=== PATIENT | female | born 2000 | race Caucasian/White ===

== ENCOUNTER 2024-05-10 05:31 | Inpatient (IN) ==
--- NOTE | 2024-05-02 09:12 | Anesthesiology Consultation ---
Date of Service May 02, 2024 Assessment & Plan (1) Encounter for pre-operative examination: - Per claim review medical director on 05/02/24: No known infectious disease contacts, current infectious disease symptoms in past 10 days or COVID positive test result in the past 30 days. Chart Review Chart Review: layout man initiated History Surgery Operation Date: 05/10/24 07:30 Proposed Procedures p Section (Delivery of Baby Through Abdominal Incision) - Aj Goss MD Height/Weight Height: 5 ft 8 in Weight: 95.254 kg Allergies Allergy/AdvReac Type Severity Reaction Status Date / Time guaifenesin [From Mucinex] Allergy Mild Rash Verified 05/02/24 07:49 Medications Home Medications Medication Instructions Recorded Confirmed Last Taken vitamin no.180-ferrous 1 tab PO DAILY #30 tabs 11/22/23 05/02/24 Unknown fumarate 27 mg-folic acid 1 mg tablet ( Plus Vitamin-Mineral) blood sugar diagnostic (OneTouch #150 ea 04/18/24 04/29/24 Unknown Verio test strips) blood-glucose meter (OneTouch #1 ea 04/18/24 04/29/24 Unknown Verio Reflect Meter) lancets 33 gauge (OneTouch Delica #150 ea 04/18/24 04/29/24 Unknown Plus Lancet) magnesium 250 mg tablet 250 mg PO DAILY 05/02/24 05/02/24 Unknown Past Medical History Medical History (Updated 05/02/24 @ 09:11 by Kim Bliss PA-C) Anxiety and depression Gestational diabetes no meds, reports yesterday bs range 81-119 History of asthma as a child No pertinent family history PCO (polycystic ovaries) Tachycardia reports no palpitations Past Family History Family History Denies family history of Ovarian cancer Breast cancer Colorectal cancer Uterine cancer Past Surgical History Surgical History History of esophagogastroduodenoscopy (EGD) Hx of myringotomy S/P tonsillectomy and adenoidectomy Social History Smoking Status: Current every day smoker Smoking cigarettes per day: 5 cigs per day (Advised) Do You Dip or Chew Tobacco: No Hx Alcohol Use: No Hx Substance Use: Yes substance use type: does not use and marijuana Last Used Substance Other:: last use approx. 5-6 months ago Lab Results Anesthesia Preop Results Results Anesthesia Widget: WBC 13.87 K/ul (4.8-10.8) H 04/25/24 Hgb 12.3 g/dl (12.0-16.0) 04/25/24 Hct 34.6 % (37.0-47.0) L 04/25/24 Plt 268 K/uL (130-400) 04/25/24 Na 138 mmol/L (136-145) 04/25/24 K 3.7 mmol/L (3.5-5.1) 04/25/24 Cl 107 mmol/L (98-107) 04/25/24 CO2 21 mmol/L (21-32) 04/25/24 BUN 12 mg/dl (6-23) 04/25/24 Creat 0.71 mg/dl (0.6-1.2) 04/25/24 Glucose Level 89 mg/dl (70-99(Fasting)) 04/25/24 POC Glucose 84 mg/dl (70-99) 03/28/24 Urine Color Dark Yellow 04/11/24 Urine Appearance Turbid (Clear) A 04/11/24 Urine pH 6.5 (4.5-7.5) 04/11/24 Urine Specific [place] 1.024 (1.000-1.030) 04/11/24 Urine Protein Trace (Negative) H 04/11/24 Urine Glucose (UA) Negative (Negative) 04/11/24 Urine Ketones Trace (Negative) H 04/11/24 Urine Blood Negative (Negative) 04/11/24 Urine Nitrite Negative (Negative) 04/11/24 Urine Bilirubin Negative (Negative) 04/11/24 Urine Urobilinogen Negative (Negative) 04/11/24 Urine Leukocyte Esterase 2+ (Negative) H 04/11/24 Urine WBC (Auto) >50 /hpf (0-5) H 04/11/24 Urine RBC (Auto) 0-2 /hpf (0-2) 04/11/24 Urine Hyaline Casts (Auto) 6-10 /lpf (0-2) H 04/11/24 Urine Epithelial Cells (Auto) 6-10 /hpf (0-2) H 04/11/24 Urine Bacteria (Auto) 4+ (None Seen) H 04/11/24 Urine Amorphous Sediment Present (None Prsent) A 04/11/24 COVID-19 PCR NEGATIVE (Negative) 03/22/24 Testing Chest X-Ray Date: 03/22/24 *1view* No pneumonia seen
[2024-05-10] MEDS: ACETAMINOPHEN 500 MG TAB PO SCH (06:26)
[2024-05-10 06:28] LABS: Hematocrit (blood only) 34.9 % (37.0-47.0); Hemoglobin 12.3 g/dl (12.0-16.0); Mean Corpuscular Hemoglobin 33.1 pg (25.0-34.0); Mean Corpuscular Hgb Conc 35.2 g/dL (32.0-36.0); Mean Corpuscular Volume 93.8 fL (80.0-100.0); Mean Platelet Volume 9.9 fL (9.4-12.4); Platelet Count 188 K/uL (130-400); RDW Coefficient of Variation 13.5 % (11.5-14.5); RDW Standard Deviation 46.2 fL (36.4-46.3); Red Blood Count 3.72 M/uL (4.20-5.40); White Blood Count 15.09 K/ul (4.8-10.8)
[2024-05-10] MEDS: LACTATED RINGER'S 1,000 ML IV SCH ×3 (06:29→09:01)
[2024-05-10] MEDS ORDERED: NALOXONE HCL 1 MG in SODIUM CHLORIDE 0.9% 1,000 ML IV PRN (07:25)
[2024-05-10] MEDS ORDERED: PROMETHAZINE 6.25 MG/50.25 ML BAG IV PRN (07:25)
[2024-05-10] MEDS ORDERED: oxyCODONE HCL IR 5 MG TAB (IMMEDIATE RELEASE) PO PRN (07:25)
[2024-05-10] MEDS ORDERED: NALOXONE HCL 0.08 MG in SYRINGE 1.8 ML IV PRN (07:25)
[2024-05-10] MEDS ORDERED: ePHEDrine sulfate 50 MG/ML AMP IV PRN (07:25)
[2024-05-10] MEDS ORDERED: ONDANSETRON INJ 2 MG/ML 2 ML VIAL IV PRN (07:25)
[2024-05-10] MEDS ORDERED: NALOXONE HCL 0.4 MG/1 ML VIAL/CARP IV PRN (07:25)
[2024-05-10] MEDS ORDERED: MEPERIDINE HCL 25 MG/ML CARP/VIAL IV PRN (07:25)
[2024-05-10] MEDS ORDERED: NALBUPHINE HCL INJ 10 MG/ML AMP IV PRN (07:25)
[2024-05-10] MEDS ORDERED: HYDROmorphone INJ 0.5 MG/0.5 ML SYR IV PRN (07:25)
[2024-05-10] MEDS: ceFAZolin 3000MG 3,000 MG/72.5 ML BAG IV SCH (07:25)
[2024-05-10] MEDS ORDERED: diphenhydrAMINE 50 MG/ML VIAL IV PRN (07:25)
[2024-05-10] MEDS ORDERED: DC INTRASPINAL MORPHINE SCH (07:30)
[2024-05-10] MEDS ORDERED: ONDANSETRON INJ 2 MG/ML 2 ML VIAL ONE (07:30)
[2024-05-10] MEDS ORDERED: MoRPHine SULFATE PF 1 MG/ML 10 ML AMP/VIAL ONE (07:30)
[2024-05-10] MEDS ORDERED: NO NARCOTICS OR SEDATIVES SCH (07:30)
[2024-05-10] MEDS ORDERED: PHENYLEPHRINE HCL 25 MG/250 ML NSS IV ONE (07:33)
--- NOTE | 2024-05-10 07:37 | History & Physical Report ---
Date of Service May 10, 2024 Assessment & Plan (1) IUGR (intrauterine growth restriction) affecting care of mother: Plan: Mandy is a 24-year-old G1, P0 currently at 37 weeks 3 days gestational age presents for primary section secondary to breech presentation and IUGR. Consent forms reviewed and signed. Procedure reviewed in detail and all questions answered. Please see OB chart for additional details. (2) Gestational diabetes mellitus (GDM) affecting , antepartum: (3) Marijuana use during : (4) Encounter for supervision of normal intrauterine in primigravida, antepartum: (5) Breech presentation: Admission and Anticipated Discharge Date Admission Date: May 10, 2024 History of Present Illness Primary Care Provider: NO PCP Mandy is a 24-year-old G1, P0 presents for scheduled primary section secondary to breech presentation and IUGR. GDM *Begin monthly Growth US's @24wks IUGR *Twice weekly NST/DVP@Dx *Weeklyl doppler@Dx *Growth US Q4wk @Dx *Deliver [id number] (unless abnml flow) *Deliver 37wks (less than 3rd%) *Everyday smoking in *Marijuana use in History of Chlamydia in early . Had negative culture 10/23 at [facility] ER. Should be retested approx 3 months after treatment (await former OB records which pt states she signed release for)--Needs testing in January - NEGATIVE 02/2024 C/S SCHEDULED FOR 05/10/[address] LACKEY FOR BREECH & IUGR OB Labs: Blood Type A Positive 11/17/23 Antibody Screen NEGATIVE 11/17/23 Hgb 12.3 g/dl (12.0-16.0) 04/25/24 Hct 34.6 % (37.0-47.0) L 04/25/24 MCV 94.0 fL (80.0-100.0) 04/25/24 Plt Count 268 K/uL (130-400) 04/25/24 Rubella IgG Antibody Immune (Immune) 11/17/23 Treponema pallidum Ab Negative (Negative) 03/12/24 Hep Bs Antigen Negative (Negative) 11/17/23 Hepatitis C Antibody Negative (Negative) 11/17/23 HIV 1&2 Ab/P24 Ag 4thGn Negative (Negative) 11/17/23 Glucose 1 Hr 50 gm 139 mg/dl (70-130) H 03/12/24 OB Optional Labs: Chlamydia trachomatis RNA Not Detected (NotDetected) 03/12/24 Neisseria gonorrhoeae RNA Not Detected (NotDetected) 03/12/24 Thyroid Stimulating Hormone (TSH) 1.364 uIu/ml (0.300-4.500) 03/07/23 Allergies Allergy/AdvReac Type Severity Reaction Status Date / Time guaifenesin [From Mucinex] Allergy Mild Rash Verified 05/09/24 13:48 Home Medications Medication Instructions Recorded Confirmed Type vitamin no.180-ferrous 1 tab PO DAILY #30 tabs 11/22/23 05/10/24 Rx fumarate 27 mg-folic acid 1 mg tablet ( Plus Vitamin-Mineral) blood sugar diagnostic (OneTouch #150 ea 04/18/24 05/10/24 Rx Verio test strips) blood-glucose meter (OneTouch #1 ea 04/18/24 05/10/24 Rx Verio Reflect Meter) lancets 33 gauge (OneTouch Delica #150 ea 04/18/24 05/10/24 Rx Plus Lancet) magnesium 250 mg tablet 250 mg PO DAILY 05/02/24 05/10/24 History Patient History Medical History Anxiety and depression Gestational diabetes no meds, reports yesterday bs range 81-119 History of asthma as a child No pertinent family history PCO (polycystic ovaries) Tachycardia reports no palpitations Surgical History History of esophagogastroduodenoscopy (EGD) Hx of myringotomy S/P tonsillectomy and adenoidectomy Family History Denies family history of Ovarian cancer Breast cancer Colorectal cancer Uterine cancer Social History Smoking Status: Current every day smoker Tobacco Type: Cigarettes Cigarettes Per Day: 5-6 cigs per day; Second Hand Exposure: No; Tobacco Cessation Education Requested by Patient: No Hx Alcohol Use: No Hx Substance Use: Yes Non-Prescribed Medications: Marijuana Non-Prescribed Medications Comment: pt states uses "here and there" for nausea - does not have medical card Last Used Substance Other:: last use approx. 5-6 months ago Preferred Language: Cook Islander Communication Ability: Effective Sandwich Peddler Required: No Beliefs That Will Affect Care: None marital status: Single marital status details: Cliff Goldman (26) [phone] Current Living Situation: Significant Other Current Living Situation Comment: FOB current occupational status: employed current occupation: [employer] in [place] Other Information That Helps Us Care for You: No Feels Safe at Home: Yes Safety Concerns: Feels Safe At This Time Assistive Devices: None Physical Exam Genitourinary: OB Exam Abdomen: + breech OB Exam Monitor Tracing: + external FHT monitor used, + external uterine monitor used, + category I and + normal FHT variability Results & Data Vital Signs (Past 12 Hours) Vital Signs Temp Pulse Resp BP 05/10/24 07:09 77 138/78 05/10/24 05:49 36.5 C 18 05/10/24 05:45 85 152/83 H 05/10/24 05:38 18 05/10/24 05:38 36.5 C 18 Coding Level of Care Code None Diagnoses Poor growth affecting management of mother in third trimester, single or unspecified fetus O36.5930 Fetus number: single or unspecified fetus Trimester: third trimester Gestational diabetes mellitus (GDM) affecting , antepartum O24.419 Marijuana use during O99.320; F12.90 Encounter for supervision of normal intrauterine in primigravida, antepartum Z34.00 Breech presentation, single or unspecified fetus O32.1XX0 Fetus number: single or unspecified fetus (1) IUGR (intrauterine growth restriction) affecting care of mother Fetus number: single or unspecified fetus Trimester: third trimester Qualified Code(s): O36.5930 - Maternal care for other known or suspected poor growth, third trimester, not applicable or unspecified (5) Breech presentation Fetus number: single or unspecified fetus Qualified Code(s): O32.1XX0 - Maternal care for breech presentation, not applicable or unspecified
[2024-05-10] MEDS ORDERED: OXYTOCIN 10 UNITS/ML VIAL ONE (07:39)
[2024-05-10 08:21] LABS: Amphetamines+Metham, Urine Neg (Neg); Barbiturates, Urine Neg (Neg); Benzodiazepine, Urine Neg (Neg); Cocaine, Urine Neg (Neg); Fentanyl, Urine Neg (Neg); MDMA (Ecstacy), Urine Neg (Neg); Marijuana, Urine Neg (Neg); Methadone, Urine Neg (Neg); Opiate, Urine Neg (Neg); Phencyclidine, Urine Neg (Neg)
[2024-05-10] MEDS ORDERED: CALCIUM CARBONATE 500 MG CHEWABLE TAB PO PRN (08:40)
[2024-05-10] MEDS ORDERED: BENZOCAINE 20% SPRY 85 APPLN/85 GM CAN EXT PRN (08:40)
[2024-05-10] MEDS ORDERED: SENNA 8.6 MG TAB PO PRN (08:40)
[2024-05-10] MEDS ORDERED: HYDROCORTISONE ACETATE 25 MG SUPP PR PRN (08:40)
[2024-05-10] MEDS ORDERED: MAGNESIUM HYDROXIDE SUSP 30 ML UDC PO PRN (08:40)
--- NOTE | 2024-05-10 08:43 | Operative Report ---
PG Post Operative Report Pre & Post Diagnosis Operation Date: 05/10/24 07:30 Pre-Op Diagnosis: Intrauterine , primary section for breech, IUGR. Post-Op Diagnosis: same I identified the patient and participated in the time-out.: Yes Procedure Operation Date: 05/10/24 07:30 Actual Procedures p Section for living male child at 0805(Bilateral) - Aj Goss MD Surgeon Aj Goss MD Hog Trader OR staff Estimated Blood Loss 298 (QBL) Findings Consistent with Post-Op Diagnosis Specimens None Description of Procedure Patient was taken the operating room after consent was ensured. Upon presentation she was properly identified. Anesthesia obtained and patient prepped and draped in normal sterile fashion. Preprocedural timeout was performed. A Pfannenstiel incision was made with a knife. This was carried down to underlying fascia with the Bovie and blunt dissection. The fascia was nicked at the midline with a knife and extended laterally with blunt dissection. Abdominal cavity was entered bluntly and placed on stretch to provide adequate room for delivery. A low transverse uterine incision was made with a knife. Breech presentation was confirmed. Caudal end of the was delivered without difficulty. Internal rotation at the hip to deliver the bilateral feet. Delivery continue to level shoulder and arms were internally rotated at the shoulder to deliver both arms atraumatically. And quickly followed and was noted to be vigorous soon after delivery. A 30 second delayed cord clamping was initiated the cord was double clamped and cut and taken to the waiting nursery staff. Attention was turned to delivery of the placenta which delivered intact with three-vessel cord gentle cord traction. Uterus was exteriorized and several passes were made to remove any remaining membranes with a dry lap. Hysterotomy was reapproximated with 0 Vicryl continuous running lock stitch with a second imbricating layer performed. Excellent hemostasis noted. Posterior cul-de-sac cleaned of clots and debris's. Uterus returned maternal abdomen and right left paracolic gutters cleaned of clots and debris's. Hysterotomy remained hemostatic. Subcutaneous, fascia and muscle layers inspected noted be hemostatic. Fascia was reapproximated 0 Vicryl continuous r unning stitch. Subcutaneous layer reapproximated 2 layers using 2-0 plain. Skin reapproximated with 3-0 Vicryl and continuous subcuticular stitch. Dermabond placed on top. Both mother and in stable condition at the completion of the case. Needle sponge and instrument counts correct at the completion of the case. No complications noted and blood loss per QBL in chart. I attest to the content of the Intraoperative Record and any orders documented therein. Any exceptions are noted below. OB Procedure charges OB Charges 18071 Procedure Procedure: Procedures Operation Date: 05/10/24 07:30 Actual Procedure Side Surgeon p Section for living male child at 0805 Bilateral Aj Goss MD Estimated blood loss (mL): 298 (QBL)
[2024-05-10] MEDS: OXYTOCIN 20 UNITS/LR 1,002 ML IV SCH (08:45)
--- NOTE | 2024-05-10 08:59 | Anesthesiology Progress Note ---
Date of Service May 10, 2024 Anesthesia Post Procedure Vital Signs Vital Signs: Temp Pulse Resp BP Pulse Ox 05/10/24 08:56 64 98 05/10/24 08:54 67 91 05/10/24 08:51 61 98 05/10/24 08:47 68 122/59 L 05/10/24 08:46 68 98 05/10/24 07:09 77 138/78 05/10/24 05:49 36.5 C 18 05/10/24 05:45 85 152/83 H 05/10/24 05:38 18 05/10/24 05:38 36.5 C 18 Transfer of Care Handoff Completed per policy Notes Mental Status: alert / awake / arousable Nausea / Vomiting: adequately controlled Pain: adequately controlled Airway Patency, RR, SpO2: stable & adequate BP & HR: stable & adequate Hydration State: stable & adequate Neuraxial Anesthesia: was administered and sensory block is resolving Anesthetic Complications: no major complications apparent and Pt Satisfied with anesthetic care
[2024-05-10] MEDS: CITRIC ACID/SODIUM CITRATE 15 ML UDC PO SCH (09:01)
[2024-05-10] MEDS: DIPHTHER/TETAN/PERTUS Vaccine (Tdap, Adol/Adult) 0.5mL IM ONE (09:04)
[2024-05-10] MEDS: MoRPHine SULFATE PF 1 MG/ML 10 ML AMP/VIAL INT SPINAL ONE (09:04)
[2024-05-10] MEDS: KETOROLAC 30 MG/ML VIAL IV SCH (09:05)
[2024-05-10] MEDS: MoRPHine SULFATE 2 MG/ML CARP IV PRN (10:20)
[2024-05-10] MEDS: SIMETHICONE 80 MG CHEW PO SCH (13:00)
[2024-05-10] MEDS: ACETAMINOPHEN 325 MG TAB PO SCH (15:15)
[2024-05-10] MEDS: DOCUSATE SODIUM 100 MG CAP PO SCH (20:55)
[2024-05-11] MEDS ORDERED: diphenhydrAMINE 50 MG/ML VIAL IV PRN (01:25)
[2024-05-11] MEDS ORDERED: ONDANSETRON INJ 2 MG/ML 2 ML VIAL IV PRN (01:25)
[2024-05-11] MEDS ORDERED: diphenhydrAMINE Capsule 25 MG CAP PO PRN (01:25)
[2024-05-11] MEDS ORDERED: PROMETHAZINE 12.5 MG/50.5 ML BAG IV PRN (01:25)
[2024-05-11] MEDS ORDERED: HYDROmorphone INJ 0.5 MG/0.5 ML SYR IV PRN (01:25)
[2024-05-11] MEDS: oxyCODONE HCL IR 5 MG TAB (IMMEDIATE RELEASE) PO PRN (06:13)
--- NOTE | 2024-05-11 06:59 | Obstetrical Progress Note ---
Date of Service May 11, 2024 Assessment & Plan (1) Breech presentation: Postoperative day #1 she is having minimal bleeding her pain is well-controlled she has no extremity pain she is following the usual recovery course after for breech presentation will continue current care and address any concerns Fetus number: single or unspecified fetus Qualified Code(s): O32.1XX0 - Maternal care for breech presentation, not applicable or unspecified Subjective Ambulation: ambulating normally Voiding: no voiding problems Lochia:: Small Physical Exam Constitutional WD/WN, vitals as above well developed and well nourished Respiratory normal respiratory effort, lungs clear to auscultation normal respiratory effort Cardiovascular RRR, no murmur, no edema Gastrointestinal (Abdomen) normal bowel sounds, soft, nontender, no hepatosplenomegaly Results & Data Vital Signs (Past 12 Hours) Vital Signs Temp Pulse Resp BP Pulse Ox O2 Del Method 05/11/24 03:35 97.9 F 73 16 130/73 96 Room Air 05/11/24 01:26 16 96 05/11/24 01:02 16 96 05/11/24 00:00 18 97 05/10/24 23:15 98.1 F 74 16 119/70 96 Room Air 05/10/24 23:00 18 95 05/10/24 21:59 18 97 05/10/24 21:00 18 96 05/10/24 20:00 Room Air 05/10/24 20:00 98.1 F 74 18 124/72 96 Room Air 05/10/24 20:00 18 96
[2024-05-11 07:57] LABS: Basophils # (auto) 0.02 K/uL (0.00-0.20); Basophils % (auto) 0.2 %; Eosinophils # (auto) 0.16 K/uL (0.00-0.50); Eosinophils % (auto) 1.5 %; Hematocrit (blood only) 31.1 % (37.0-47.0); Hemoglobin 10.7 g/dl (12.0-16.0); Immature Granulocytes # (auto) 0.05 K/uL (0.01-0.20); Immature Granulocytes % (auto) 0.5 %; Lymphocytes # (auto) 2.47 K/uL (1.20-3.40); Lymphocytes % (auto) 23.7 %; Mean Corpuscular Hgb Conc 34.4 g/dL (32.0-36.0); Mean Platelet Volume 10.3 fL (9.4-12.4); Monocytes # (auto) 0.47 K/uL (0.11-0.59); Monocytes % (auto) 4.5 %; Neutrophils # (auto) 7.26 K/uL (1.40-6.50); Neutrophils % (auto) 69.6 %; Platelet Count 163 K/uL (130-400); RDW Coefficient of Variation 13.5 % (11.5-14.5); RDW Standard Deviation 47.9 fL (36.4-46.3); Red Blood Count 3.24 M/uL (4.20-5.40); White Blood Count 10.43 K/ul (4.8-10.8)
[2024-05-11] MEDS: PRENATAL VITAMIN 1 TAB PO SCH (08:31)
[2024-05-11] MEDS: IBUPROFEN 600 MG TAB PO SCH (08:32)
[2024-05-11] MEDS: FERROUS SULFATE 325 MG TAB PO SCH (08:34)
[2024-05-11] MEDS ORDERED: KETOROLAC 30 MG/ML VIAL IV PRN (09:00)
[2024-05-11] MEDS: bisacodyL 5 MG TABEC PO SCH (20:38)
[2024-05-12 03:26] VITALS: O2SAT 97
[2024-05-12 07:29] LABS: Hematocrit (blood only) 31.2 % (37.0-47.0); Hemoglobin 10.5 g/dl (12.0-16.0)
--- NOTE | 2024-05-12 08:00 | Obstetrical Progress Note ---
Date of Service May 12, 2024 Assessment & Plan (1) Encounter for care and examination after delivery: POD2 s/p pCS, doing well. Swelling still present but symmetric, b/l, NT, nonerythematous. Discussed usual ocurse of swelling after delivery. Desires dc home, ok to do so Subjective Ambulation: ambulating normally Voiding: no voiding problems Passing Gas:: Yes Diet Tolerance:: regular diet Lochia:: Small Feeding Type:: breast feeding Pain well managed with medication Review of Systems Denies fevers, chills, n/v, BUTLER, CP, SOB Physical Exam Constitutional WD/WN, vitals as above no acute distress Respiratory normal respiratory effort, lungs clear to auscultation Cardiovascular RRR, no murmur, no edema Gastrointestinal (Abdomen) Percussion/Palpation: abdomen soft; abdomen nontender fundus firm at umbilicus and NT, incision c/d/i Musculoskeletal BLE appropriately swollen but symmetric, nonerythematous, nontender Results & Data Vital Signs (Past 12 Hours) Vital Signs Temp Pulse Resp BP Pulse Ox O2 Del Method 05/12/24 03:10 97.7 F 66 16 123/78 97 Room Air 05/11/24 20:30 97.9 F 67 18 121/75 98 Room Air
[2024-05-12] MEDS ORDERED: bisacodyL 10 MG SUPP PR PRN (08:40)
[2024-05-12] MEDS: IBUPROFEN 600 MG TAB PO PRN (08:41)
[2024-05-12 10:06] VITALS: PULSE 64; RESP 18; TEMP 97.9
[2024-05-12 12:18] VITALS: BP 124/76
[2024-05-12] MEDS ORDERED: ACETAMINOPHEN 325 MG TAB PO PRN (15:00)
--- NOTE | 2024-05-13 08:38 | Coding Query ---
CODING QUERY To promote full compliance with coding requirements relating to patient care, provider participation is requested in all cases of auto body technician uncertainty. Please assist us with the question(s) below: Coding Question(s): The H&P documents, "Encounter for induction of labor", and, "Patient is a 29 yo female currently at 39+5WGA with an FEDE 05/03/24 as determined by LMP who is here for . Presence of contractions". It is not clear if the patient came in for induction of labor, and the reason for the induction of labor, or if the patient came in in labor. Please specify below: ( ) Encounter for induction of labor. Please specify the reason for induction of labor: ( ) Patient was in labor already upon admission Physician's Response(s): Thank you Silvia Meraz Principal Diagnosis: "that condition established after study, to be chiefly responsible for occasioning the admission of the patient to the hospital for care." Co-Existing Principal Diagnosis: "when two or more diagnoses equally meet the criteria for principal diagnosis as determined by the circumstances of admission, diagnostic work up, and/or therapy provided, and the Alphabetic Index, Tabular List, or another coding guideline does not provide sequencing direction, any one of the diagnoses may be sequenced first." "When the physician has documented what appears to be a current diagnosis in the body of the record, but has not included the diagnosis in the final diagnostic statement, the physician should be asked whether the diagnosis should be added." (Source Coding [facility] 2 QTR90. p3-4) [facility]
== END 2024-05-12 11:25 | disposition home or self-care (01) | DRG 787 ==
LOC: 4S1 05:31 → EDSTATUS 07:30 → 4E2 11:15